=== PATIENT | female | born 2000 | race Caucasian/White ===

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

== ENCOUNTER → 2020-07-26 | Emergency (ER) | payer MEDICAID ==
[~2020-07-26] VITALS: Ht 154.9 cm; Wt 84.1 kg
[~2020-07-26] MED LIST: PHENERGAN 25 TA25 MG PO; PRENATAL TABLET PO
[2020-07-26 15:57] VITALS: TEMP 98.5
[2020-07-26 16:18] LABS: COLLECTION METHOD CLEAN CATCH
[2020-07-26 16:25] LABS: MUCOUS Present /lpf; PH 6 (5-8); URINE APPEARANCE Clear; URINE BACTERIA None Seen /hpf; URINE BILIRUBIN Negative (NEGATIVE); URINE BLOOD Negative (NEGATIVE); URINE COLOR Yellow; URINE GLUCOSE Negative (NEGATIVE); URINE KETONE 2+ (NEGATIVE); URINE LEUKOCYTE ESTERASE Trace (NEGATIVE); URINE NITRATE Negative (NEGATIVE); URINE PROTEIN(semi-quant) 1+ (NEGATIVE); URINE RBC 0-2 /hpf; URINE UROBILINOGEN Negative (NEGATIVE)
[2020-07-26 16:57] LABS: BASO % 0.3 % (0.0-2.0); EOS # 0.1 (0.0-0.7); EOS % 0.4 % (0-4.0); GRAN # 9.9 (1.4-6.5); GRAN % 78.7 % (42.2-75.2); HEMOGLOBIN 11.9 g/dl (12.0-15.0); LYMPH # 1.9 (1.2-3.4); LYMPH % 14.9 % (20.0-51.0); MEAN CELL VOLUME 85 fl (80.0-95.0); MEAN CORPUSCULAR HEMOGLOBIN 29 pg (26.0-32.0); MEAN CORPUSCULAR HGB CONC 35 g/dl (33.0-37.0); MEAN PLATELET VOLUME 10.9 fl (7.4-10.4); MONO # 0.7 (0.1-0.6); MONO % 5.4 % (1.7-9.3); PLATELET COUNT 248 K/mm3 (130-400); RED BLOOD COUNT 4.05 M/mm3 (4.10-5.30); REDCELL DISTRIBUTION WIDTH-CV 12.4 % (11.5-14.5)
[2020-07-26 17:02] LABS: HEMATOCRIT 34.5 % (35.0-45.0)
[2020-07-26 17:16] LABS: ALBUMIN 4.3 gm/dL (3.5-5.0); BILIRUBIN,TOTAL 0.3 mg/dL (0.0-1.0); CALCIUM 9.8 mg/dL (8.4-10.2); CREATININE, serum 0.54 (0.52-1.25); POTASSIUM 3.4 mmol/L (3.4-5.0); TOTAL PROTEIN 7.4 gm/dL (6.4-8.2)
[2020-07-26 17:55] VITALS: BP 116/78; PULSE 84
== END ==
LOC: COL.ER 15:47
PROVIDERS: Nurse Practitioner Primary Care
DX: O21.9 Vomiting of pregnancy, unspecified (principal); Z3A.12 12 weeks gestation of pregnancy
CPT/HCPCS: J2550; J7030

== ENCOUNTER 2020-08-10 16:39 | Emergency (ER) | payer MEDICAID ==
[~2020-08-10] VITALS: Ht 154.9 cm; Wt 79.5 kg
[2020-08-10 16:46] VITALS: TEMP 97.7
[2020-08-10 17:12] LABS: COLLECTION METHOD CLEAN CATCH
[2020-08-10 17:20] LABS: AMORPHOUS CRYSTAL Present /uL; PH 8 (5-8); URINE APPEARANCE Cloudy; URINE BACTERIA None Seen /hpf; URINE BILIRUBIN Negative (NEGATIVE); URINE BLOOD Negative (NEGATIVE); URINE COLOR Yellow; URINE GLUCOSE Negative (NEGATIVE); URINE KETONE 1+ (NEGATIVE); URINE LEUKOCYTE ESTERASE Trace (NEGATIVE); URINE NITRATE Negative (NEGATIVE); URINE PROTEIN(semi-quant) Negative (NEGATIVE); URINE RBC 0-2 /hpf; URINE UROBILINOGEN Negative (NEGATIVE); URINE WBC 0-2 /hpf
[2020-08-10 17:26] LABS: ALBUMIN 4.3 gm/dL (3.5-5.0); BILIRUBIN,TOTAL 0.5 mg/dL (0.0-1.0); CALCIUM 9.5 mg/dL (8.4-10.2); CREATININE, serum 0.52 (0.52-1.25); POTASSIUM 3.7 mmol/L (3.4-5.0); TOTAL PROTEIN 7.6 gm/dL (6.4-8.2)
[2020-08-10 17:41] LABS: BASO % 0.2 % (0.0-2.0); EOS % 0.3 % (0-4.0); GRAN # 6.8 (1.4-6.5); GRAN % 72.4 % (42.2-75.2); HEMATOCRIT 36.1 % (35.0-45.0); HEMOGLOBIN 12.4 g/dl (12.0-15.0); LYMPH # 1.9 (1.2-3.4); LYMPH % 20.4 % (20.0-51.0); MEAN CELL VOLUME 86 fl (80.0-95.0); MEAN CORPUSCULAR HEMOGLOBIN 30 pg (26.0-32.0); MEAN CORPUSCULAR HGB CONC 34 g/dl (33.0-37.0); MEAN PLATELET VOLUME 10.9 fl (7.4-10.4); MONO # 0.6 (0.1-0.6); MONO % 6.2 % (1.7-9.3); PLATELET COUNT 250 K/mm3 (130-400); RED BLOOD COUNT 4.18 M/mm3 (4.10-5.30)
[2020-08-10 19:02] VITALS: BP 121/83; PULSE 90
== END 2020-08-10 19:02 | disposition home or self-care (01) ==
LOC: COL.ER 16:39
PROVIDERS: Nurse Practitioner Primary Care
DX: O21.9 Vomiting of pregnancy, unspecified (principal); O26.891 Other specified pregnancy related conditions, first trimester; M54.89 Other dorsalgia; Z3A.14 14 weeks gestation of pregnancy
CPT/HCPCS: J2550; J7030

== ENCOUNTER 2021-01-05 19:43 | Outpatient (CLI) | payer MEDICAID ==
[~2021-01-05] VITALS: Ht 154.9 cm; Wt 91.6 kg
--- NOTE | 2021-01-05 19:50 | NUR ---
Ambulatory to unit for labor assessment. Oriented to room, monitor, plan of care. Questions invited and answered. Pt reports abd cramping statrted 3 hours agor. Reports pain level 5 on scale of 1-10. SVE closed, high. PT very tense with exam, difficult to complete despite coaching.
[2021-01-05 20:05] VITALS: BP 109/66; PULSE 106; TEMP 98.1
[2021-01-05 21:15] VITALS: BP 95/52; PULSE 97
--- NOTE | 2021-01-05 21:30 | NUR ---
Pt relaxed and social, reports pain unchanged. SVE unchanged.
--- NOTE | 2021-01-05 22:00 | NUR ---
Discharge instructions reviewed with pt, questions invited and answered. Ambulatory off unit.
== END 2021-01-05 22:00 | disposition home or self-care (01) ==
LOC: LDRO 19:43 → LDR 19:45 → LDRO 22:00
DX: O26.893 Other specified pregnancy related conditions, third trimester (principal); R10.9 Unspecified abdominal pain; Z3A.35 35 weeks gestation of pregnancy
CPT/HCPCS: OP

== ENCOUNTER 2021-01-19 01:05 | Outpatient (CLI) | payer MEDICAID ==
[~2021-01-19] VITALS: Ht 154.9 cm; Wt 90.9 kg
[2021-01-19 01:20] VITALS: BP 124/77; PULSE 117; TEMP 98.1
--- NOTE | 2021-01-19 01:20 | NUR ---
0120 G1L0 37.2 WEEK GEST TO LR3 WITH C/O CONTRACTIONS FOR LAST 5 HOURS AND LOSING HER MUCOUS PLUG. EFM ON WITH NO CONTRACTION SEEN IN FIRST FIVE MINUTES. SVE 0/0/HIGH AND NOT TOLERATED WELL BY PT. ADM ASSESSMENT DONE 0130 STATES IS NOT FEELING CONTRACTIONS NOW AFTER SVE. DR CASTRO NOTIFIED AND ORDER TO LET PT GO HOME AT 0200 AND NO SVE RECHECK NEEDED.
--- NOTE | 2021-01-19 02:00 | NUR ---
0200 STATES HAS NOT FELT ANY CONTRACTIONS SINCE ADM TO UNIT. BABY VERY ACTIVE. DISMISS INSTRUCTIONS GIVEN. 0215 HOME WITH INSTRUCTIONS.
== END 2021-01-19 02:15 | disposition home or self-care (01) ==
LOC: LDRO 01:05 → LDR 01:05 → LDRO 02:15
DX: O62.9 Abnormality of forces of labor, unspecified (principal); Z3A.37 37 weeks gestation of pregnancy
CPT/HCPCS: OP

== ENCOUNTER 2021-02-11 14:28 | Inpatient (IN) | payer MEDICAID ==
[2021-02-11] VITALS (15 sets, daily range): BP systolic 95–151; BP diastolic 56–69; PULSE 60–90; TEMP 97.7–98.9
[~2021-02-11] VITALS: Ht 155 cm; Wt 90.9 kg
--- NOTE | 2021-02-11 14:35 | NUR ---
Ambulatory to unit, accompanied by significant other [place] Tejeda. Admits for scheduled primary ceserean section for suspected LGA fetus.
[2021-02-11 15:29] LABS: BASO % 0.3 % (0.0-2.0); EOS % 0.3 % (0-4.0); GRAN # 5.4 (1.4-6.5); GRAN % 72.7 % (42.2-75.2); HEMOGLOBIN 11.6 g/dl (12.0-15.0); LYMPH # 1.3 (1.2-3.4); LYMPH % 17.4 % (20.0-51.0); MEAN CELL VOLUME 88 fl (80.0-95.0); MEAN CORPUSCULAR HEMOGLOBIN 29 pg (26.0-32.0); MEAN CORPUSCULAR HGB CONC 33 g/dl (33.0-37.0); MONO # 0.7 (0.1-0.6); MONO % 8.8 % (1.7-9.3); PLATELET COUNT 175 K/mm3 (130-400); RED BLOOD COUNT 3.96 M/mm3 (4.10-5.30); REDCELL DISTRIBUTION WIDTH-CV 14.4 % (11.5-14.5)
[2021-02-11 15:31] LABS: HEMATOCRIT 34.8 % (35.0-45.0)
[2021-02-12 01:30] VITALS: BP 105/67; PULSE 90
[2021-02-12 04:43] VITALS: BP 104/57; PULSE 78; TEMP 98.3
[2021-02-12 08:10] VITALS: BP 106/65; PULSE 64; TEMP 97.9
[2021-02-12] MEDS ORDERED: IBU600 MG PO (09:01)
[2021-02-12] MEDS ORDERED: ROXICODONE 55 MG/TAB PO (09:02)
[2021-02-12 11:02] VITALS: BP 106/68; PULSE 76; TEMP 97.7
[2021-02-12 16:56] VITALS: BP 98/52; PULSE 83; TEMP 98.4
[2021-02-12 19:40] VITALS: BP 107/58; PULSE 92; TEMP 98.3
[2021-02-13 08:01] VITALS: BP 103/68; PULSE 85; TEMP 98.8
== END 2021-02-13 13:10 | disposition home or self-care (01) | DRG 786 ==
LOC: LDR 14:28
PROVIDERS: ADMIT Obstetrics & Gynecology
PROC: 10D00Z1 Extraction of Products of Conception, Low, Open Approach (ICD-10-PCS; principal; 2021-02-11)
DX: O36.63X0 Maternal care for excessive fetal growth, third trimester, not applicable or unspecified (principal); U07.1 COVID-19; O98.52 Other viral diseases complicating childbirth; O48.0 Post-term pregnancy; O33.1 Maternal care for disproportion due to generally contracted pelvis; O99.013 Anemia complicating pregnancy, third trimester; D64.9 Anemia, unspecified; Z37.0 Single live birth; Z3A.40 40 weeks gestation of pregnancy
CPT/HCPCS: J7120